=== PATIENT | male | born 1960 | race Caucasian/White ===

== ENCOUNTER 2017-03-10 09:51 | Emergency (ER) | payer MEDICARE ==
[~2017-03-10] VITALS: Ht 182.9 cm; Wt 72.5 kg
[2017-03-10 09:53] VITALS: BP 176/99; PULSE 89; RESP 16; TEMP 98.2; O2SAT 100
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
[2017-03-10 11:23] LABS: AUTOMATED NEUTROPHIL # 8.9 TH/MM3 (1.8-7.7); BASOPHIL # 0.1 TH/MM3 (0-0.2); BASOPHIL % 0.8 % (0.0-2.0); EOSINOPHIL # 0.1 TH/MM3 (0-0.4); EOSINOPHIL % 0.5 % (0.0-4.0); HEMATOCRIT 47.3 % (39.0-51.0); HEMO FLAGS DIFF FINAL; LYMPH % 16.7 % (9.0-44.0); LYMPHOCYTE # 2.1 TH/MM3 (1.0-4.8); MEAN CELL VOLUME 94.9 FL (80.0-100.0); MEAN CORPUSCULAR HGB CONC 34.7 % (32.0-36.0); MONO % 9.3 % (0.0-8.0); NEUT % 72.7 % (16.0-70.0); PLATELET COUNT 207 TH/MM3 (150-450); RED BLOOD COUNT 4.98 MIL/MM3 (4.50-5.90); RED CELL DISTRIBUTION WIDTH 13.6 % (11.6-17.2); WHITE BLOOD COUNT 12.3 TH/MM3 (4.0-11.0)
[2017-03-10 11:39] LABS: ANION GAP 8 MEQ/L (5-15); AST (GOT) 20 U/L (15-37); BLOOD UREA NITROGEN 11 MG/DL (7-18); CHLORIDE 104 MEQ/L (98-107); GLOMERULAR FILTRATION RATE 95 ML/MIN (>89); POTASSIUM 3.8 MEQ/L (3.5-5.1); SODIUM (NA) 137 MEQ/L (136-145)
[2017-03-10 11:43] LABS: ALCOHOL 4 MG/DL (0-5); ALKALINE PHOSPHATASE 84 U/L (45-117); ALT (GPT) 25 U/L (12-78); TOTAL BILIRUBIN ADULT 0.5 MG/DL (0.2-1.0)
[2017-03-10] MEDS ORDERED: SAPH10SU3 SL (12:30)
[2017-03-10 15:32] VITALS: BP 103/62; PULSE 74; RESP 18; O2SAT 96
[2017-03-10 18:34] VITALS: BP 110/57; PULSE 74; RESP 18; O2SAT 97
[2017-03-11 02:24] VITALS: BP 108/64; PULSE 63; RESP 18; O2SAT 98
[2017-03-11 10:59] VITALS: BP 102/56; PULSE 64; RESP 17; O2SAT 98
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
--- NOTE | 2017-03-11 12:29 | PD ---
Physical Exam Date Seen by Provider: Mar 11, 2017 Time Seen by Provider: 12:27 Narrative For full History of physical examination please see previous notes. Data Data Last Documented VS Vital Signs Date Time Temp Pulse Resp B/P (MAP) Pulse Ox O2 Delivery O2 Flow Rate FiO2 03/11/17 10:59 64 17 102/56 (71) 98 Room Air 03/10/17 09:53 98.2 Orders Orders Complete Blood Count With Diff (03/10/17 10:47) Comprehensive Metabolic Panel (03/10/17 10:47) Psych Screen (03/10/17 10:47) Drug Screen, Random Urine (03/10/17 10:47) Alcohol (Ethanol) (03/10/17 10:47) Diet Regular Basic (03/10/17 Dinner) Diet Regular Basic (03/11/17 Breakfast) Diet Regular Basic (03/11/17 Lunch) Labs Laboratory Tests Test 03/10/17 11:08 White Blood Count 12.3 TH/MM3 Red Blood Count 4.98 MIL/MM3 Hemoglobin 16.4 GM/DL Hematocrit 47.3 % Mean Corpuscular Volume 94.9 FL Mean Corpuscular Hemoglobin 33.0 PG Mean Corpuscular Hemoglobin Concent 34.7 % Red Cell Distribution Width 13.6 % Platelet Count 207 TH/MM3 Mean Platelet Volume 8.6 FL Neutrophils (%) (Auto) 72.7 % Lymphocytes (%) (Auto) 16.7 % Monocytes (%) (Auto) 9.3 % Eosinophils (%) (Auto) 0.5 % Basophils (%) (Auto) 0.8 % Neutrophils # (Auto) 8.9 TH/MM3 Lymphocytes # (Auto) 2.1 TH/MM3 Monocytes # (Auto) 1.1 TH/MM3 Eosinophils # (Auto) 0.1 TH/MM3 Basophils # (Auto) 0.1 TH/MM3 CBC Comment DIFF FINAL Differential Comment Blood Urea Nitrogen 11 MG/DL Creatinine 0.84 MG/DL Random Glucose 86 MG/DL Total Protein 6.9 GM/DL Albumin 3.7 GM/DL Calcium Level 8.4 MG/DL Alkaline Phosphatase 84 U/L Aspartate Amino Transf (AST/SGOT) 20 U/L Alanine Aminotransferase (ALT/SGPT) 25 U/L Total Bilirubin 0.5 MG/DL Sodium Level 137 MEQ/L Potassium Level 3.8 MEQ/L Chloride Level 104 MEQ/L Carbon Dioxide Level 25.0 MEQ/L Anion Gap 8 MEQ/L Estimat Glomerular Filtration Rate 95 ML/MIN Urine Opiates Screen NEG Urine Barbiturates Screen NEG Urine Amphetamines Screen NEG Urine Benzodiazepines Screen NEG Urine Cocaine Screen NEG Urine Cannabinoids Screen POS Ethyl Alcohol Level 4 MG/DL [facility] Medical Record Reviewed: Yes Supervised Visit with TAD: No Narrative Course Patient presented to the emergency Department voluntarily for psychiatric evaluation due to suicidal ideation secondary to relationship issues and life stressors. He was seen and evaluated in the emergency department and then medically cleared. He was then seen and evaluated by psychiatry. Saez act was lifted, patient was diagnosed with adjustment disorder. He was scheduled for follow-up at [facility]. Please see psychiatry notes for full report. Patient is stable for discharge at this time. Diagnosis Primary Impression: Medical clearance for psychiatric admission Additional Impression: Adjustment disorder Qualified Codes: F43.20 - Adjustment disorder, unspecified [facility] Instructions: General Instructions Additional Instruction: Follow-up with Franco Hanson as advised Return to emergency department for any new or worsening symptoms Disposition: 01 DISCHARGE HOME Condition: Stable Simran Jean Mar 11, 2017 12:29
[2017-03-11 12:30] VITALS: BP 102/56; PULSE 64; RESP 17; O2SAT 98
== END 2017-03-11 13:55 | disposition home or self-care (01) ==
LOC: NEPD 09:51 → NEPJ 03-11 13:55
DX: F43.23 Adjustment disorder with mixed anxiety and depressed mood (principal); F31.9 Bipolar disorder, unspecified
CPT/HCPCS: 80053; 80307; 85025; 99284